=== PATIENT | male | born 1955 | race Caucasian/White ===

== ENCOUNTER → 2020-12-13 17:20 | Outpatient (CLI) | payer OTHER, SELFPAY ==
--- NOTE | 2020-12-13 17:38 | MRI_ITS ---
STUDY: MRI LUMBAR SPINE WITHOUT CONTRAST REASON FOR EXAM: Male, 65 years old. LUMBOSACRAL STRAIN TECHNIQUE: Standardized fat and water weighted pulse sequences were obtained in the sagittal and axial planes. COMPARISON: None FINDINGS: T12-L1: Normal endplates. Normal disc height, hydration and morphology. Normal bilateral facet joints. Normal central canal and bilateral lateral recesses. Normal bilateral intervertebral neural foramina. Normal lumbar lordosis. There is no substantial scoliosis. Normal conus medullaris that terminates at the L1. L1-2: Mild bilateral facet hypertrophy with fluid in the facet joints consistent with instability and mild ligament flavum hypertrophy. 2 mm retrolisthesis of L1 on L2 with a mild bilobed disc protrusion with a large right paracentral and preforaminal protrusion produces moderate spinal stenosis, moderate right lateral recess stenosis with abutment of the right L2 nerve root, mild left lateral recess stenosis and mild bilateral neural foraminal stenosis. L2-3: Mild bilateral facet hypertrophy with facet joints consistent with instability and mild ligament flavum hypertrophy. 2 mm retrolisthesis of L2 on L3 with a mild broad disc protrusion produces moderate spinal stenosis with moderate bilateral lateral recess stenosis with abutment of the L3 nerve roots bilaterally and moderate bilateral neural foraminal stenosis. L3-4: Mild bilateral facet hypertrophy and ligament flavum hypertrophy. 5 mm retrolisthesis of L3 on L4 with a moderate broad disc protrusion produces severe spinal stenosis with moderate bilateral lateral recess stenosis with abutment of the L4 nerve roots bilaterally and moderate bilateral neural foraminal stenosis. L4-5: Severe bilateral facet hypertrophy and moderate ligament flavum hypertrophy. 2 mm of anterolisthesis of L4 on L5 with a moderate broad disc protrusion produces moderate spinal stenosis with moderate bilateral lateral recess stenosis with abutment of the L5 nerve roots bilaterally and moderate bilateral neural foraminal stenosis with abutment of the L4 nerve roots bilaterally. L5-S1: Moderate bilateral facet hypertrophy. Mild broad disc protrusion produces mild spinal stenosis and moderate bilateral neural foraminal stenosis with abutment of the L5 nerve root laterally. Normal visualized sacral ala. Normal visualized paraspinous soft tissue structures. MRI/Spine Lumbar (Routine) IMPRESSION: Multilevel degenerative changes, as described above. Electronically Signed: Diego Peace MD at 10:46 EDT Tel , Service support ,
== END ==
PROVIDERS: Referring Provider Family Medicine; Visit Provider Family Medicine
DX: S39.012A Strain of muscle, fascia and tendon of lower back, initial encounter (principal)
CPT/HCPCS: 72148